=== PATIENT | female | born 1960 | race Caucasian/White ===

== ENCOUNTER 2017-12-02 14:57 | Outpatient (CLI) | payer BC, OTHER, SELFPAY | END 2017-12-02 14:58 | disposition home or self-care (01) | LOC: BICMAMMO 14:57 | DX: Z12.31 Encounter for screening mammogram for malignant neoplasm of breast (principal) | CPT/HCPCS: 77063; 77067 ==

== ENCOUNTER 2019-01-19 14:32 | Outpatient (CLI) | payer BC | END 2019-01-19 14:33 | disposition home or self-care (01) | LOC: BICMAMMO 14:32 | PROVIDERS: ATTEND Internal Medicine | DX: Z12.31 Encounter for screening mammogram for malignant neoplasm of breast (principal); R92.1 Mammographic calcification found on diagnostic imaging of breast | CPT/HCPCS: 77063; 77067 ==

== ENCOUNTER 2019-01-27 14:03 | Outpatient (CLI) | payer BC ==
--- NOTE | 2019-01-28 09:01 | MMO ---
FILMS COMPARED: The present examination has been compared to prior imaging studies performed at [facility] on 07/29/2006, 09/03/2007 and 10/25/2008, and at [facility] on 09/04/2010, 06/08/2012, 07/22/2013, 09/19/2014, 11/09/2015, 11/21/2016 and 12/02/2017. MAMMOGRAM FINDINGS: The breast is extremely dense, which may lower the sensitivity of mammography. The calcs in the right upper outer breast have a suspicious appearance and should be biopsied. IMPRESSION: FINDING IN THE RIGHT BREAST IS SUSPICIOUS. A STEREOTACTIC BREAST BIOPSY IS RECOMMENDED. D/W PATIENT IN PERSON AT 1445 HRS ON 01/27/19. ACR BI-RADS Category 4 - Suspicious abnormality - biopsy should be considered
== END 2019-01-27 14:04 | disposition home or self-care (01) ==
LOC: BICMAMMO 14:03
PROVIDERS: ATTEND Internal Medicine
DX: R92.1 Mammographic calcification found on diagnostic imaging of breast (principal)
CPT/HCPCS: G0279

== ENCOUNTER → 2019-02-08 | Day surgery (SDC) | payer BC ==
--- NOTE | 2019-02-08 09:39 | MMO ---
SPECIMEN RADIOGRAPH: INDICATIONS: Status post stereotactic biopsy, upper outer quadrant, right breast, for indeterminate calcifications . FINDINGS: Specimen radiographs do reveal punctate microcalcification within the excised specimens. IMPRESSION: Status post stereotactic biopsy, right breast, with microcalcifications of interest within the excise d specimens. POS: [facility]
--- NOTE | 2019-02-08 09:41 | MMO ---
DIAGNOSTIC RIGHT MAMMOGRAM: CLINICAL HISTORY: Status post stereotactic biopsy and clip placement of right breast. FINDINGS: There is a clip deployed adjacent to a cluster of calcifications within the upper outer quadrant of t he right breast. Biopsy tract with air density is seen traversing the site of clustered microcalcifi cations with a decreased number of calcifications noted. IMPRESSION: Status post stereotactic biopsy and clip deployment, upper outer quadrant, right breast. POS: [facility]
--- NOTE | 2019-02-09 07:17 | MMO ---
STEREOTACTIC BIOPSY RIGHT BREAST BIOPSY MARKING CLIP PLACEMENT UPPER OUTER QUADRANT RIGHT BREAST: INDICATION: Indeterminate cluster of calcifications upper outer quadrant right breast. PROCEDURE: Informed consent was obtained. The patient was escorted to the procedural suite and placed in the pr one position. The right breast was placed into compression, and stereotactic views were performed to localize the calcifications of interest. The right breast was then prepped and draped in the standa rd sterile fashion and topical anesthesia was buffered 1% Lidocaine was achieved. A small skin incis ion was made through which a 10-gauge vacuum-assist stereotactic needle was advanced to the leading e dge of the calcifications and was then deployed, confirmed with imaging. Subsequently, 6 core specim ens were acquired. An additional sampling acquisition of 4 core specimens from the same area was als o performed. Post specimen radiographs did reveal microcalcifications within the radiograph specimen s. The biopsy needle was then removed and was exchanged for a clip placement device. A biopsy clip was then advanced and deployed within the site of biopsy, confirmed with stereotactic views. No procedural complications were present. IMPRESSION: 1. Technically successful stereotactic biopsy of right breast calcifications, upper outer quadrant. 2. Technically successful clip deployment at site of biopsy. 3. Pathology results are pending. The patient will be notified when they are received. POS: [facility]
== END ==
LOC: MAMMO 06:35
PROVIDERS: ATTEND Internal Medicine
PROC: 0HBT3ZX Excision of Right Breast, Percutaneous Approach, Diagnostic (ICD-10-PCS; principal; 2019-02-08)
DX: N60.21 Fibroadenosis of right breast (principal)
CPT/HCPCS: 19081; 76098; 88305; 88341; 88342

== ENCOUNTER 2019-03-03 00:01 | Outpatient (CLI) | payer BC ==
[2019-03-03 12:03] LABS: #Basophils 0.1 thou/uL (0.0-0.2); #Eosinphils 0.1 thou/uL (0.0-0.7); #Monocytes 0.7 thou/uL (0.11-0.59); #Neutrophils 6.5 thou/uL (1.40-6.50); %Basophils 0.8 % (0.0-1.0); %Lymphocytes 21.7 % (21.0-51.0); %Monocytes 7.7 % (0.0-10.0); %Neutrophils 68.8 % (42.0-75.0); Hemoglobin 14.3 g/dL (12.0-16.0); Mean Corpuscular HGB CONC 31.6 g/dL (32.0-36.0); Mean Corpuscular Hemoglobin 30.2 pg (27.0-31.0); Mean Corpuscular Volume 95.7 fL (78.0-98.0); Mean Platelet Volume 7.4 fL (7.4-10.4); Platelet Count 257 thou/uL (130-400); RBC Distribution Width 11.2 % (11.5-14.5); Red Blood Cell (RBC) Count 4.75 mill/uL (4.20-5.40); White Blood Cell (WBC) Count 9.4 thou/uL (4.8-10.8)
[2019-03-03 12:17] LABS: ALT (SGPT) 15 U/L (8-55); AST (SGOT) 18 U/L (5-34); Albumin 4.3 g/dL (3.5-5.0); Alkaline Phosphatase 81 U/L (40-150); Anion Gap 10 mmol/L (10-20); BUN (Urea Nitrogen) 9 mg/dL (9.8-20.1); Bilirubin, Total 0.5 mg/dL (0.2-1.2); Calc. Creatinine Clearance 0 mL/min (70-130); Calcium 9.7 mg/dL (7.8-10.44); Carbon Dioxide 28 mmol/L (22-29); Chloride 100 mmol/L (98-107); Estimated GFR-MDRD 69; Globulin 2.5 g/dL (2.4-3.5); Glucose 93 mg/dL (70-105); Potassium 3.7 mmol/L (3.5-5.1); Protein, Total 6.8 g/dL (6.0-8.3); Sodium 134 mmol/L (136-145)
--- NOTE | 2019-03-03 17:09 | EKG ---
Test Reason : Blood Pressure : / mmHG Vent. Rate : 069 BPM Atrial Rate : 069 BPM P-R Int : 168 ms QRS Dur : 086 ms QT Int : 388 ms P-R-T Axes : 087 092 080 degrees QTc Int : 415 ms Normal sinus rhythm Rightward axis Borderline ECG No previous ECGs available Confirmed by Tristen JACINTO ([id number]) on 03/03/2019 5:09:29 PM Referred By: RENETTA Confirmed By:Tristen AJCINTO
== END 2019-03-03 00:02 | disposition home or self-care (01) ==
LOC: LABBT 00:01
PROVIDERS: ATTEND Surgery
DX: Z01.818 Encounter for other preprocedural examination (principal); N60.91 Unspecified benign mammary dysplasia of right breast
CPT/HCPCS: 80053; 85025; 93005; 93010

== ENCOUNTER 2019-03-05 07:09 | Day surgery (SDC) | payer BC ==
[2019-03-03 11:23] VITALS: BMI 20.9
[2019-03-05] MEDS ORDERED: Bupivacaine HCl 0.5%/Epinephrine 1:200,000/PF 30 ml Vial ONE (08:42)
[2019-03-05] MEDS ORDERED: Lidocaine 2% PF 5 ML VIAL ONE ×2 (08:42→08:44)
[2019-03-05] MEDS ORDERED: Isosulfan Blue 50 MG/5 ML VIAL ONE (08:42)
[2019-03-05] MEDS ORDERED: Fentanyl 100 MCG/2 ML VIAL ONE (09:07)
--- NOTE | 2019-03-05 10:49 | MMO ---
EXAM: MAMMO Brst Loc Dev Mammo Guide PROVIDED CLINICAL HISTORY: Microcalcifications upper outer right breast. Stereotactic guided breast biopsy was performed which d emonstrated atypia and surgical excision was recommended. COMPARISON: Mammograms on 01/19/2019 as well as postprocedure mammogram on 02/08/2019. TECHNIQUE: The procedure including risks and complications were explained to the patient and informed consent wa s obtained. Calcifications and biopsy marker clip in the upper-outer right breast were localized with mammographic guidance in the CC projection with grid localizer in place. The area was meticulous ly prepped and draped in the usual sterile fashion. Skin and subcutaneous tissues were infiltrated with buffered 1% lidocaine for local anesthesia. A 5 cm [place] localization needle and wire were advan Azubu. Mammogram was obtained. An opposing medial lateral projection was performed demonstrating correct depth of the needle. The localization wire was advanced. Dry sterile dressing was placed. The patient tolerated the procedure well and without immediate complication. Patient was transported to the operating room for further treatment. IMPRESSION: Technically successful needle and wire localization of biopsy marker clip and microcalcifications in the upper outer right breast.
--- NOTE | 2019-03-05 10:52 | MMO ---
EXAM: MAMMO Surgial Specimen PROVIDED CLINICAL HISTORY: Patient is post needle and wire localization and excisional biopsy. COMPARISON: Needle and wire localization procedure and images obtained on 03/05/2019. FINDINGS/IMPRESSION: A single specimen right breast is submitted for interpretation. The specimen contains a [place] localiz ation wire. The biopsy marker clip as well as multiple microcalcifications are seen within the provided specimen. Dr. Carter was notified of the findings in the operating room at the time that the specimen mammogram was received.
--- NOTE | 2019-03-05 11:13 | OP ---
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 PROCEDURE PERFORMED: Right partial mastectomy. INDICATIONS: A 58-year-old female, had an abnormal area of microcalcifications on mammogram in the upper outer right breast, underwent core needle biopsy, came back atypical ductal hyperplasia, but there were a lot more microcalcifications. FINDINGS: Successful removal of the biopsy clip and microcalcifications by specimen mammogram. DESCRIPTION OF PROCEDURE: After informed consent was obtained, the patient was taken to the operating room and given general mask anesthesia. She had undergone needle localization in the mammography suite. Her breast was prepped and draped in usual fashion. Local anesthesia infiltrated subcutaneously and deep, and a curvilinear incision was performed. Subcu divided sharply. A core breast tissue was excised around the needle tract and marked with the needle superior, black suture anterior, and blue suture lateral. Sent to mammography, which revealed it contained the clip and microcalcifications, sent to Pathology for further analysis. Hemostasis achieved with electrocautery. Subcu reapproximated with interrupted 3-0 Vicryl. Skin closed with a running subcuticular 4-0 Rapide. Steri-Strips applied. Sterile bandage applied. The patient tolerated the procedure well. Transferred to Recovery in good condition. Sponge and needle count verified correct x2. Job ID: [id number]
[2019-03-05] MEDS ORDERED: Ondansetron PF 4 MG/2 ML Vial ONE (17:09)
[2019-03-05] MEDS ORDERED: PROPOFOL 200 MG/20 ML VIAL ONE (17:09)
[2019-03-05] MEDS ORDERED: Dexamethasone 20 MG/5 ML VIAL ONE (17:09)
[2019-03-05] MEDS ORDERED: Ketorolac Tromethamine 30 MG/ML VIAL ONE (17:09)
[2019-03-05] MEDS ORDERED: Lidocaine 1% PF 5 ML VIAL ONE (17:09)
== END 2019-03-05 12:23 | disposition home or self-care (01) ==
LOC: SDC 07:09
PROVIDERS: ATTEND Surgery
PROC: 0HBT0ZZ Excision of Right Breast, Open Approach (ICD-10-PCS; principal; 2019-03-05)
DX: C50.411 Malignant neoplasm of upper-outer quadrant of right female breast (principal); F41.9 Anxiety disorder, unspecified; F32.9 Major depressive disorder, single episode, unspecified; E07.9 Disorder of thyroid, unspecified; F17.200 Nicotine dependence, unspecified, uncomplicated; Z79.899 Other long term (current) drug therapy; Z88.8 Allergy status to other drugs, medicaments and biological substances
CPT/HCPCS: 19281; 76098; 88307; 88341; 88342; J0670; J0690; J1100; J1885; J2001; J2405; J2704; J3010; Q9968

== ENCOUNTER 2019-03-19 10:39 | Outpatient (CLI) | payer BC ==
[2019-03-19] MEDS ORDERED: Gadobenate Dimeglumine 529 MG/1 ML (20ML VIAL) ONE (11:27)
--- NOTE | 2019-03-22 11:40 | MRI ---
MRI BILATERAL BREASTS WITHOUT AND WITH CONTRAST: Date: 03/19/19 COMPARISON: Mammograms dated 02/08/19 and 03/05/19. HISTORY: Malignant neoplasm of the upper outer aspect of the right breast. TECHNIQUE: Multiplanar, multisequence MR images were obtained of the bilateral breasts without and with IV contr ast. FINDINGS: There is a hematoma in the upper outer aspect of the right breast measuring 3.9 cm in greatest dimens ion. This demonstrates rim-like enhancement. There are a few susceptibility artifacts within this col lection which may represent small foci of air or surgical clips. Heterogeneously dense breast parenchyma is seen. Minimal background parenchymal enhancement is seen. No suspicious enhancement is seen in either breast. No suspicious mass is seen in either breast. No axillary adenopathy is seen. No internal mammary lymph nodes are identified. The anterior liver and osseous structures are unremarkable. IMPRESSION: BIRADS Category 2 - Benign findings. The patient has a biopsy excisional site hematoma without evidence of contralateral or multicentric d isease. POS: [facility]
== END 2019-03-19 10:40 | disposition home or self-care (01) ==
LOC: BICMRI 10:39
PROVIDERS: ATTEND Internal Medicine Hematology & Oncology
DX: C50.411 Malignant neoplasm of upper-outer quadrant of right female breast (principal)
CPT/HCPCS: A9577; C8908

== ENCOUNTER 2019-04-14 00:53 | Outpatient (CLI) | payer BC ==
[2019-04-14 11:44] LABS: #Basophils 0.1 thou/uL (0.0-0.2); #Eosinphils 0.1 thou/uL (0.0-0.7); #Lymphocytes 1.8 thou/uL (1.20-3.40); #Monocytes 0.5 thou/uL (0.11-0.59); #Neutrophils 5.4 thou/uL (1.40-6.50); %Basophils 1.4 % (0.0-1.0); %Eosinophils 1.4 % (0.0-10.0); %Lymphocytes 23.1 % (21.0-51.0); %Monocytes 5.8 % (0.0-10.0); %Neutrophils 68.5 % (42.0-75.0); Hemoglobin 14.6 g/dL (12.0-16.0); Mean Corpuscular HGB CONC 33.6 g/dL (32.0-36.0); Mean Corpuscular Hemoglobin 32.2 pg (27.0-31.0); Mean Corpuscular Volume 95.8 fL (78.0-98.0); Mean Platelet Volume 7.5 fL (7.4-10.4); Platelet Count 234 thou/uL (130-400); RBC Distribution Width 11.2 % (11.5-14.5); Red Blood Cell (RBC) Count 4.53 mill/uL (4.20-5.40); White Blood Cell (WBC) Count 7.8 thou/uL (4.8-10.8)
[2019-04-14 12:05] LABS: ALT (SGPT) 12 U/L (8-55); AST (SGOT) 19 U/L (5-34); Albumin 4.4 g/dL (3.5-5.0); Alkaline Phosphatase 88 U/L (40-150); Anion Gap 11 mmol/L (10-20); BUN (Urea Nitrogen) 11 mg/dL (9.8-20.1); Bilirubin, Total 0.6 mg/dL (0.2-1.2); Calc. Creatinine Clearance 0 mL/min (70-130); Calcium 9.7 mg/dL (7.8-10.44); Carbon Dioxide 27 mmol/L (22-29); Chloride 102 mmol/L (98-107); Estimated GFR-MDRD 68; Glucose 86 mg/dL (70-105); Protein, Total 6.4 g/dL (6.0-8.3); Sodium 136 mmol/L (136-145)
== END 2019-04-14 00:54 | disposition home or self-care (01) ==
LOC: LABBT 00:53
PROVIDERS: ATTEND Surgery
DX: Z01.812 Encounter for preprocedural laboratory examination (principal); C50.911 Malignant neoplasm of unspecified site of right female breast
CPT/HCPCS: 80053; 85025

== ENCOUNTER 2019-04-21 07:13 | Inpatient (IN) | payer BC ==
[2019-04-14 10:32] VITALS: BMI 20.9
--- NOTE | 2019-04-21 08:45 | NM ---
NM Lymphoscintigraphy HISTORY: Malignant neoplasm of unspecified site of the right female breast. RADIOPHARMACEUTICAL: 431 uCi of technetium 99m filtered sulfur colloid. Right periareolar injection in divided doses. FINDINGS: There is visualization of the right axillary lymph nodes. Lymph nodes in the internal mamma ry chains on either side or the left axilla are not visualized. IMPRESSION: [place] lymph node(s) in the right axilla.
[2019-04-21] MEDS ORDERED: Bupivacaine HCl 0.5%/Epinephrine 1:200,000/PF 30 ml Vial ONE (10:00)
[2019-04-21] MEDS ORDERED: Isosulfan Blue 50 MG/5 ML VIAL ONE (10:00)
[2019-04-21] MEDS ORDERED: Lidocaine 2% PF 5 ML VIAL ONE (10:00)
[2019-04-21] MEDS ORDERED: Fentanyl 100 MCG/2 ML VIAL ONE ×2 (10:03→13:39)
[2019-04-21] MEDS ORDERED: Dextrose 50% Abboject 50 ML SYRINGE SLOW IVP PRN (13:04)
[2019-04-21] MEDS ORDERED: Promethazine HCl 25 MG/ML VIAL IM PRN ×2 (13:04→13:07)
[2019-04-21] MEDS ORDERED: HYDROcodone/Acetaminophen 10/325 mg Tablet PO PRN (13:04)
[2019-04-21] MEDS ORDERED: Ondansetron PF 4 MG/2 ML Vial IVP PRN (13:04)
[2019-04-21] MEDS ORDERED: Morphine 4 MG/ML VIAL SLOW IVP PRN (13:04)
[2019-04-21] MEDS ORDERED: Dextrose 5% in Water 1,000 ML IV PRN (13:04)
[2019-04-21] MEDS ORDERED: Acetaminophen 325 MG TAB PO PRN (13:04)
[2019-04-21] MEDS ORDERED: hydrALAZINE 20 MG/ML VIAL SLOW IVP PRN (13:04)
[2019-04-21] MEDS ORDERED: Ondansetron HCl/PF 4 MG/2 ML Vial IVP PRN (13:07)
[2019-04-21] MEDS ORDERED: Morphine Sulfate 2 MG/ML SYRINGE SLOW IVP PRN (13:07)
[2019-04-21] MEDS ORDERED: Promethazine HCl 25 MG/ML VIAL SLOW IVP PRN (13:07)
[2019-04-21] MEDS ORDERED: PACU-Morphine 4MG/ML VIAL SLOW IVP PRN (13:07)
[2019-04-21] MEDS ORDERED: Meperidine HCl/PF 25 MG/ML VIAL SLOW IVP PRN (13:07)
[2019-04-21] MEDS ORDERED: HYDROmorphone 2 MG/ML VIAL SLOW IVP PRN (13:07)
[2019-04-21] MEDS ORDERED: Ketorolac Tromethamine 30 MG/ML VIAL IVP PRN (13:07)
--- NOTE | 2019-04-21 13:21 | RAD ---
RADIOGRAPH CHEST 1 VIEW: DATE: 04/21/2019 HISTORY: MediPort placement FINDINGS: There are no airspace densities, pulmonary edema, pneumothorax, or cardiomegaly. The lateral costophr enic angles are sharp. There is a left subclavian implantable vascular access port with distal tip overlying the SVC. There are catheter-like devices overlying the lung bases and lateral chest paulino. IMPRESSION: 1. No acute cardiopulmonary findings. 2. Left-sided implantable vascular access port without pneumothorax.
[2019-04-21] MEDS ORDERED: Morphine 2 MG/ML SYRINGE SLOW IVP PRN (13:26)
[2019-04-21] MEDS ORDERED: D5 1/2 NS w/20 mEq KCL 1,000 ML ONE (14:07)
[2019-04-21] MEDS ORDERED: Lidocaine 1% PF 5 ML VIAL ONE (14:42)
[2019-04-21] MEDS ORDERED: PROPOFOL 200 MG/20 ML VIAL ONE (14:42)
[2019-04-21] MEDS ORDERED: Rocuronium Bromide 10 MG/ML (10ML VIAL) ONE (14:42)
[2019-04-21] MEDS ORDERED: Glycopyrrolate 0.2 MG/ML 5 ML SYRINGE ONE (14:42)
[2019-04-21] MEDS ORDERED: ePHEDrine 50 MG/ML VIAL ONE (14:42)
[2019-04-21] MEDS ORDERED: Dexamethasone 20 MG/5 ML VIAL ONE (14:42)
[2019-04-21] MEDS ORDERED: Ondansetron PF 4 MG/2 ML Vial ONE (14:42)
[2019-04-21] MEDS ORDERED: PHENYLEPHRINE-NS 100 MCG/ML 10 ML SYRINGE ONE (14:42)
[2019-04-21] MEDS: D5 1/2 NS w/20 mEq KCL 1,000 ML IV SCH (15:56)
[2019-04-21 19:04] LABS: #Lymphocytes 1.1 thou/uL (1.20-3.40); #Monocytes 0.6 thou/uL (0.11-0.59); #Neutrophils 17.3 thou/uL (1.40-6.50); %Basophils 0.1 % (0.0-1.0); %Eosinophils 0.1 % (0.0-10.0); %Lymphocytes 5.6 % (21.0-51.0); %Monocytes 3.4 % (0.0-10.0); %Neutrophils 90.9 % (42.0-75.0); Hemoglobin 12.2 g/dL (12.0-16.0); Mean Corpuscular HGB CONC 32.9 g/dL (32.0-36.0); Mean Corpuscular Hemoglobin 31.9 pg (27.0-31.0); Mean Corpuscular Volume 96.7 fL (78.0-98.0); Mean Platelet Volume 7.4 fL (7.4-10.4); Platelet Count 225 thou/uL (130-400); RBC Distribution Width 11.2 % (11.5-14.5); Red Blood Cell (RBC) Count 3.82 mill/uL (4.20-5.40)
[2019-04-21] MEDS ORDERED: Sodium Chloride 0.9% 1,000 ML IV SCH (19:15)
[2019-04-21] MEDS: Famotidine 20 MG TAB PO SCH (20:12)
[2019-04-21] MEDS: Docusate 100 MG CAP PO SCH (20:12)
[2019-04-21] MEDS: HYDROcodone/Acetaminophen 10/325 mg Tablet PO PRN (21:26)
[2019-04-22] MEDS: D5 1/2 NS w/20 mEq KCL 1,000 ML IV SCH ×2 (05:25→10:35)
[2019-04-22 05:49] LABS: #Lymphocytes 1.6 thou/uL (1.20-3.40); #Monocytes 1.3 thou/uL (0.11-0.59); #Neutrophils 10.5 thou/uL (1.40-6.50); %Eosinophils 0.2 % (0.0-10.0); %Lymphocytes 12.1 % (21.0-51.0); %Monocytes 9.7 % (0.0-10.0); Hemoglobin 10.1 g/dL (12.0-16.0); Mean Corpuscular HGB CONC 33.3 g/dL (32.0-36.0); Mean Corpuscular Hemoglobin 32.2 pg (27.0-31.0); Mean Corpuscular Volume 96.7 fL (78.0-98.0); Mean Platelet Volume 7.8 fL (7.4-10.4); Platelet Count 182 thou/uL (130-400); RBC Distribution Width 11.2 % (11.5-14.5); Red Blood Cell (RBC) Count 3.12 mill/uL (4.20-5.40); White Blood Cell (WBC) Count 13.5 thou/uL (4.8-10.8)
[2019-04-22 06:09] LABS: Anion Gap 10 mmol/L (10-20); BUN (Urea Nitrogen) 11 mg/dL (9.8-20.1); Calc. Creatinine Clearance 71 mL/min (70-130); Calcium 8.1 mg/dL (7.8-10.44); Carbon Dioxide 19 mmol/L (22-29); Chloride 108 mmol/L (98-107); Estimated GFR-MDRD 75; Glucose 125 mg/dL (70-105); Potassium 4.3 mmol/L (3.5-5.1); Sodium 133 mmol/L (136-145)
[2019-04-22] MEDS ORDERED: Enoxaparin Sodium 40 MG/0.4 ML SYRINGE SC SCH (09:00)
[2019-04-22] MEDS: Famotidine 20 MG TAB PO SCH (10:38)
[2019-04-22] MEDS: Docusate 100 MG CAP PO SCH (10:38)
--- NOTE | 2019-04-22 11:30 | OP ---
DATE OF PROCEDURE: 04/21/2019 PREOPERATIVE DIAGNOSIS: Invasive lobular carcinoma of the right breast. PROCEDURES PERFORMED: MediPort placement, bilateral total mastectomy, sentinel lymph node biopsy with lymphoscintigraphy. INDICATIONS: This is a 58-year-old female, who underwent a core needle biopsy that came back atypical ductal hyperplasia. Needle-directed lumpectomy was performed that came back with invasive lobular carcinoma with extensive in-situ lobular carcinoma. She elected for bilateral mastectomy and she did not want reconstruction. FINDINGS: A single sentinel lymph node was found in the right axilla. The MediPort was placed in left subclavian. DESCRIPTION OF PROCEDURE: After informed consent was obtained, the patient was taken to the operating room and given general endotracheal anesthesia. She had undergone injection of radionucleotide in the Nuclear Medicine Department. Started on the left side with the MediPort, chest was prepped and draped in usual fashion. An introducer needle was inserted in left subclavian with good backflow of venous blood, J-wire threaded easily. Fluoroscopy was performed showing good placement in the superior vena cava. Skin and subcu were anesthetized. Transverse chest wall incision was performed in the upper left chest, a pocket created for the port. The tunneling device was used to connect the 2 incisions. The catheter brought through the tunnel. It was connected to the MediPort. The MediPort was secured to the pectoralis muscle with interrupted 2-0 Prolene suture. The catheter was cut to size. The system was flushed with heparinized saline. The peel-away introducer was inserted over the wire, the wire was removed. The catheter inserted through the peel-away introducer and the peel-away introducer removed. Fluoroscopy again performed showed good placement of the catheter in the superior vena cava. Subcu reapproximated with interrupted 3-0 Vicryl. Skin closed with a running subcuticular 4-0 Rapide. Dermabond applied. The system was accessed, good backflow of venous blood and flushed with heparinized saline. Then, we re-prepped and draped the chest and the left mastectomy was performed first. An elliptical incision was performed. Subcu divided sharply using the plasma blade. The plane between subcutaneous and breast tissue was developed to the level of the clavicle superior to the rectus inferiorly, the sternum medially, and the latissimus laterally. The breast was removed from the pectoralis muscle to include its fascia. It was marked with a suture superior, sent to Pathology for further analysis. Hemostasis achieved using the plasma blade. The wound was thoroughly irrigated. Two drains were placed, brought out through separate stab wounds. Subcu reapproximated with interrupted 3-0 Vicryl. Skin closed with a running subcuticular 4-0 Rapide. Just prior to the final closure, Lymphazurin 5 mL was infiltrated subareolar on the right, then the skin was closed on the left, then moved to the right side. The Neoprobe was used and a baseline with counts of 28 were found. Then, transcutaneous counts of 85 were found in the upper right axilla. An elliptical incision was performed sharply with a blade. Then, the plasma blade used to develop the plane between the breast tissue and subcutaneous tissue, again to the level of the clavicle superior, sternum medially, rectus inferiorly, and latissimus laterally and the breast was taken off the chest wall with the plasma blade. It was marked with a suture superior. We were able to also remove the previous biopsy site with the specimen. Then, using the Neoprobe, I was able to find counts over 100 and traced it down to a blue lymph node in the right axilla, this was dissected out. Efferent and afferent lymphatics were ligated with 3-0 Vicryl ties. This was sent to Pathology. Residual counts were all 10 or less. Hemostasis achieved with the plasma blade. The wound was thoroughly irrigated. Irrigation fluid removed. Two drains were placed, brought out through separate stab wounds. The subcu reapproximated with interrupted 3-0 Vicryl. Skin closed with a running subcuticular 4-0 Rapide. Steri-strips applied. Sterile bandage applied. The patient tolerated the procedure well, transferred to Recovery in good condition. Sponge and needle count verified correct x2. Job ID: [id number]
[2019-04-22 12:40] VITALS: BP 119/57; TEMP 98.2
[2019-04-22] MEDS: HYDROcodone/Acetaminophen 10/325 mg Tablet PO PRN (13:02)
--- NOTE | 2019-04-22 15:23 | DIS ---
DATE OF ADMISSION: 04/21/2019 DATE OF DISCHARGE: 04/22/2019 DISCHARGE DIAGNOSES: 1. Invasive lobular breast cancer, right breast. 2. Near syncopal episode. PROCEDURES DURING ADMISSION: MediPort placement, bilateral total mastectomy, right sentinel lymph node biopsy with lymphoscintigraphy. HOSPITAL COURSE: The patient was admitted, taken to the operating room, where she underwent first of all MediPort on the left, then she underwent bilateral total mastectomy with sentinel lymph node biopsy. Postoperatively, she was a little uneasy, had a near syncopal episode in the bathroom. She was given some IV fluids, responded well, and since then, has been doing well. Her pain is controlled on p.o. medications. She is tolerating a regular diet. She is now discharged home in good condition, on hydrocodone. She has been instructed as to drain care, she will be recording drain output. She will follow up with me on Friday. Job ID: [id number]
== END 2019-04-22 14:10 | disposition home or self-care (01) | DRG 581 ==
LOC: SDC 07:13 → SJJU 13:04
PROVIDERS: ADMIT Surgery; ATTEND Surgery
PROC: 07B50ZX Excision of Right Axillary Lymphatic, Open Approach, Diagnostic (ICD-10-PCS; principal; 2019-04-21)
PROC: 0HTV0ZZ Resection of Bilateral Breast, Open Approach (ICD-10-PCS; 2019-04-21)
PROC: C71L1ZZ Planar Nuclear Medicine Imaging of Upper Chest Lymphatics using Technetium 99m (Tc-99m) (ICD-10-PCS; 2019-04-21)
PROC: 02HV33Z Insertion of Infusion Device into Superior Vena Cava, Percutaneous Approach (ICD-10-PCS; 2019-04-21)
DX: C50.911 Malignant neoplasm of unspecified site of right female breast (principal); R55 Syncope and collapse
CPT/HCPCS: 36416; 71045; 78195; 80048; 85025; A9541; C1788; J0670; J0690; J1100; J1642; J2001; J2270; J2405; J2704; J3010; J3490; Q9968

== ENCOUNTER 2019-05-10 12:34 | Outpatient (CLI) | payer BC | END 2019-05-10 12:35 | disposition home or self-care (01) | LOC: ULT 12:34 | PROVIDERS: ATTEND Internal Medicine Hematology & Oncology | DX: C50.411 Malignant neoplasm of upper-outer quadrant of right female breast (principal); I07.1 Rheumatic tricuspid insufficiency; Z79.899 Other long term (current) drug therapy | CPT/HCPCS: 93306 ==

== ENCOUNTER 2019-08-16 14:28 | Outpatient (CLI) | payer BC | END 2019-08-16 14:29 | disposition home or self-care (01) | LOC: ULT 14:28 | PROVIDERS: ATTEND Internal Medicine Hematology & Oncology | DX: Z51.11 Encounter for antineoplastic chemotherapy (principal); C50.411 Malignant neoplasm of upper-outer quadrant of right female breast; I08.1 Rheumatic disorders of both mitral and tricuspid valves | CPT/HCPCS: 93306 ==

== ENCOUNTER 2020-01-27 12:06 | Outpatient (CLI) | payer BC ==
--- NOTE | 2020-01-27 12:53 | CT ---
CT pulmonary lung scan without IV contrast INDICATION: Lung cancer screening protocol; 40+ pack year smoking history; recently quit in November 23, 2019; history of breast cancer COMPARISON: None FINDINGS: LUNGS: Nodules\mass: No suspicious nodule demonstrated. Emphysema: There is severe centrilobular emphysema Additional findings: There are coronary artery and thoracic aortic calcifications. There is a left martinez bclavian chest wall port in place. Mediastinum: No lymphadenopathy. Upper abdomen: There is an exophytic mildly hypodense lesion involving the superior pole left kidney measuring 3 cm I cannot be further characterize. There is a left nephrolithiasis. One of the largest consultation left kidney measures 4 mm. There is renal cortical scarring involving the superi or pole right kidney. Adrenal glands are normal appearing. There is partial visualization of an ACDF at C6-7. Osseous structures: No acute abnormality.. IMPRESSION: Lung-RADS Category 2: Benign- Continue annual screening with LDCT in 12 months Category S: Exophytic hyperdense lesion off superior pole left kidney cannot be further characterize. Further evaluation with a renal ultrasound may be helpful for additional characterization. Findings may reflect a proteinaceous cyst; however, complex cystic mass is not excluded. Left nephrol ithiasis. Renal cortical scarring involving the superior pole right kidney. Severe centrilobular emphysema. Category C: Not applicable.
== END 2020-01-27 12:07 | disposition home or self-care (01) ==
LOC: CT 12:06
PROVIDERS: ATTEND Internal Medicine Hematology & Oncology
DX: Z51.11 Encounter for antineoplastic chemotherapy (principal); C50.411 Malignant neoplasm of upper-outer quadrant of right female breast; F17.210 Nicotine dependence, cigarettes, uncomplicated; N20.0 Calculus of kidney; I08.1 Rheumatic disorders of both mitral and tricuspid valves; Z79.899 Other long term (current) drug therapy
CPT/HCPCS: 93306; G0297

== ENCOUNTER 2020-02-14 10:26 | Outpatient (CLI) | payer BC ==
--- NOTE | 2020-02-14 11:19 | ULT ---
Exam: Bilateral renal ultrasound HISTORY: Follow-up left renal lesion noted on low-dose screening CT COMPARISON: None FINDINGS: Right kidney: No hydronephrosis. No solid masses. 1.1 x 1.7 x 1.0 cm renal cyst. Dilated right renal pelvis. Right kidney measurements: 11.1 x 5.3 x 4.7 cm. Left kidney: No hydronephrosis. No solid masses. 2 separate cyst in the left kidney measuring 2.7 x 1 .9 x 2.4 and 2.3 x 2.1 x 2.1 cm Left kidney measurements 10.1 x 4.6 x 5.4 cm. Urinary bladder: Normal mucosa. 363 mL bladder volume IMPRESSION: 1. No hydronephrosis 2. Bilateral renal cysts.
== END 2020-02-14 10:27 | disposition home or self-care (01) ==
LOC: BICULT 10:26
PROVIDERS: ATTEND Internal Medicine Hematology & Oncology
DX: N28.9 Disorder of kidney and ureter, unspecified (principal); C50.411 Malignant neoplasm of upper-outer quadrant of right female breast; N28.1 Cyst of kidney, acquired
CPT/HCPCS: 76770

== ENCOUNTER 2020-07-19 07:40 | Outpatient (CLI) | payer BC, OTHER ==
[2020-07-19 14:06] LABS: #Basophils 0.1 thou/uL (0.0-0.2); #Eosinphils 0.1 thou/uL (0.0-0.7); #Lymphocytes 1.8 thou/uL (1.20-3.40); #Monocytes 0.5 thou/uL (0.11-0.59); #Neutrophils 4.5 thou/uL (1.40-6.50); %Eosinophils 1.8 % (0.0-10.0); %Lymphocytes 25.2 % (21.0-51.0); %Monocytes 7.7 % (0.0-10.0); %Neutrophils 64.4 % (42.0-75.0); Hemoglobin 13.8 g/dL (12.0-16.0); Mean Corpuscular Hemoglobin 30.4 pg (27.0-31.0); Mean Corpuscular Volume 92.4 fL (78.0-98.0); Mean Platelet Volume 7.7 fL (7.4-10.4); Platelet Count 273 thou/uL (130-400); RBC Distribution Width 11.7 % (11.5-14.5); Red Blood Cell (RBC) Count 4.52 mill/uL (4.20-5.40)
[2020-07-19 14:40] LABS: Anion Gap 15 mmol/L (10-20); BUN (Urea Nitrogen) 16 mg/dL (9.8-20.1); Calc. Creatinine Clearance 0 mL/min (70-130); Calcium 9.4 mg/dL (7.8-10.44); Carbon Dioxide 25 mmol/L (23-31); Chloride 103 mmol/L (98-107); Estimated GFR-MDRD 54; Glucose 96 mg/dL (80-115); Potassium 4.6 mmol/L (3.5-5.1); Sodium 138 mmol/L (136-145)
[2020-07-20 13:16] LABS: SARS-CoV-2 MS2 Positive; SARS-CoV-2 N Gene Negative; SARS-CoV-2 S Gene Negative; SARS-CoV-2 by NAA Not Detected (NotDetected); SARS-CoV-2 orf1ab Negative
== END 2020-07-19 07:41 | disposition home or self-care (01) ==
LOC: LABBT 07:40
PROVIDERS: ATTEND Surgery
DX: Z01.812 Encounter for preprocedural laboratory examination (principal); Z20.828 Contact with and (suspected) exposure to other viral communicable diseases; Z85.3 Personal history of malignant neoplasm of breast
CPT/HCPCS: 80048; 85025; 87635; U0003

== ENCOUNTER 2021-01-26 13:14 | Outpatient (CLI) | payer BC | END 2021-01-26 13:15 | disposition home or self-care (01) | LOC: BICCT 13:14 | PROVIDERS: ATTEND Internal Medicine Hematology & Oncology | DX: Z12.2 Encounter for screening for malignant neoplasm of respiratory organs (principal); F17.210 Nicotine dependence, cigarettes, uncomplicated | CPT/HCPCS: 71271 ==

== ENCOUNTER 2021-10-26 13:49 | Outpatient (CLI) | payer BC | END 2021-10-26 13:50 | disposition home or self-care (01) | LOC: BICMAMMO 13:49 | PROVIDERS: ATTEND Internal Medicine Hematology & Oncology | DX: Z13.820 Encounter for screening for osteoporosis (principal); Z78.0 Asymptomatic menopausal state; M85.89 Other specified disorders of bone density and structure, multiple sites | CPT/HCPCS: 77080 ==

== ENCOUNTER 2023-02-14 12:21 | Outpatient (CLI) | payer OTHER | END 2023-02-14 12:22 | disposition home or self-care (01) | LOC: BICCT 12:21 | PROVIDERS: ATTEND Internal Medicine | DX: Z12.2 Encounter for screening for malignant neoplasm of respiratory organs (principal); F17.210 Nicotine dependence, cigarettes, uncomplicated | CPT/HCPCS: 71271 ==

== ENCOUNTER 2023-10-31 08:16 | Outpatient (CLI) | payer MEDICARE, OTHER | END 2023-10-31 08:17 | disposition home or self-care (01) | LOC: BICMAMMO 08:16 | PROVIDERS: ATTEND Internal Medicine Hematology & Oncology | DX: Z13.820 Encounter for screening for osteoporosis (principal); C50.411 Malignant neoplasm of upper-outer quadrant of right female breast; F17.210 Nicotine dependence, cigarettes, uncomplicated; M85.89 Other specified disorders of bone density and structure, multiple sites; Z90.3 Acquired absence of stomach [part of] | CPT/HCPCS: 77080 ==

== ENCOUNTER 2024-04-20 12:27 | Outpatient (CLI) | payer MEDICARE | END 2024-04-20 12:28 | disposition home or self-care (01) | LOC: SCSMRI 12:27 | PROVIDERS: ATTEND Internal Medicine Hematology & Oncology | DX: C50.919 Malignant neoplasm of unspecified site of unspecified female breast (principal); R51.9 Headache, unspecified | CPT/HCPCS: 70553 ==